=== PATIENT | male | born 1960 | race Caucasian/White ===

== ENCOUNTER 2016-07-07 12:45 | Emergency (ER) | payer MEDICARE, OTHER ==
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
--- NOTE | ~2016-07-07 | CT2 ---
[facility] A Service of [facility] RADIOLOGY TEXT RESULTS PATIENT: YAMILET DUONG LOCATION: [facility] : 64 UNIT #: [id number] AGE: [address]: Albania Martin MD SEX: M ORDER DR: [id number] [place], [place] [address] [id number] E MR#: [id number] Acc #: [id number] NAME: YAMILET DUONG. : 1960 SEX: M STUDY DATE/TIME: 07/07/2016 12:47 UNIT: [facility] ROOM: STUDY DESCRIPTION: CT Abd and Pelv W Cont Attending Physician: Albania Martin M.D. Ordering Physician: Albania Martin M.D. MEDICAL IMAGING REPORT This report is preliminary unless electronic signature is present EXAM CT abdomen and pelvis with contrast INDICATIONS Lower anterior chest/upper abdominal pain. Symptoms are chronic. TECHNIQUE Contrast-enhanced CT of the abdomen and pelvis. 100 mL of Isovue-370. This CT exam was performed with one or more of the following radiation dose reduction techniques: automatic exposure control, adjustment of mA and/or kV according to patient size, and iterative reconstruction. COMPARISON 10/22/2015. FINDINGS Refer to the separately dictated CTA of the chest for thoracic findings. Elevated right hemidiaphragm. ABDOMEN WITH CONTRAST: Liver enlarged measuring 19.6 cm. Hepatic steatosis. The spleen, adrenal glands, pancreas unremarkable. Previous cholecystectomy. There is a small non-obstructing calculus in the right kidney. The bowel loops are non-dilated. Moderate colonic stool burden. Small fat-containing umbilical hernia. PELVIS WITH CONTRAST: No pelvic mass or fluid. No aggressive appearing bone lesion. IMPRESSION 1. No clearly acute findings. 2. Elevated right hemidiaphragm with hepatomegaly and steatosis are [facility] A Service of [facility] RADIOLOGY TEXT RESULTS PATIENT: YAMILET DUONG LOCATION: [facility] : 64 UNIT #: [id number] AGE: [address]: Albania Martin MD SEX: M ORDER DR: similar to the prior. There is a small non-obstructing calculus in the right kidney. 3. Moderate colonic stool burden. Dictated by... Joaquin Prescott M.D. THIS IS AN ELECTRONICALLY VERIFIED REPORT Joaquin Prescott M.D. at 07/11/2016 7:10 AM EED/rell TD: 07/07/2016 21:50 JOB #: [id number] MEDICAL IMAGING REPORT COPY
[~2016-07-07 12:45] MED LIST: ADVAIR 250-501 EACH IH; ALLERGY RELIEF10 M2 PO; ATIVAN PO; BACLOFEN PO; BACLOFEN10 MG PO; BACLOFEN20 MG PO; BIAXIN PO; CLARITIN10 M2 PO; CLARITIN10 M3 PO; CLARITIN10 MG PO; CRESTOR PO; CULTURELLE CHE1 EACH; DESYREL300 MG PO; FISH OIL 1,001000 M1 PO; LACTULOSE10 G/15 M1 PO; LACTULOSE10 G/15 M3 PO; LACTULOSE10 G/15 ML PO; LEXAPRO PO; LEXAPRO20 MG PO; LIPITOR PO; LORTAB 10/500 T1 TAB PO; MAGNESIUM250 M1 PO; METRONIDAZOLE PO; MIRALAX17 GM PO; NEURONTIN; NEURONTIN300 MG PO; NEXIUM PO; NORCO 10/3251 TAB PO; OXYGEN; PEPTO BISMOL PO; PERCOCET10 PO; PHENERGAN PO; PHENERGAN25 MG PO; PREVACID PO; PRILOSEC PO; PRILOSEC20 MG; PROBIOTIC1 EAC1 PO; PROTONIX PO; SENNA-S TABLE1 UDTAB; SINGULAIR PO; SYMBICORT INH; TETRACYCLINE PO; TRAZODONE HCL150 MG PO; TRAZODONE PO; VALPROIC ACID PO; VESICARE PO; ZANAFLEX PO; ZANAFLEX4 M1 PO; ZYRTEC10 M2 PO
[2016-07-07 13:59] LABS: BASOPHIL% 0.3 % (0-2.5); EOSINOPHIL# 0.2 X10e3 (0-0.7); EOSINOPHIL% 2.4 % (0.0-7.0); HEMATOCRIT 44.5 % (38.0-50.0); HEMOGLOBIN 14.7 gm/dL (13.0-16.0); LYMPHOCYTE# 2.3 X10e3 (1.0-3.5); LYMPHOCYTE% 34.7 % (17.0-45.0); MEAN CORPUSCULAR HEMOGLOBIN 31.4 PG (28-34); MEAN PLATELET VOLUME 7.2 FL (6.5-11.5); MONOCYTE# 0.6 X10e3 (0-1.0); MONOCYTE% 8.7 % (3.0-12.0); NEUTROPHIL# 3.6 X10e3 (1.5-7.1); NEUTROPHIL% 53.9 % (40-75); PLATELET COUNT 187 X10e3 (140-420); RED BLOOD COUNT 4.68 X10e (3.90-5.60); RED CELL DISTRIBUTION WIDTH 13.3 % (11.0-15.5); WHITE BLOOD COUNT 6.7 X10e3 (4.0-10.5)
[2016-07-07 14:06] LABS: DIFF IND NO
[2016-07-07 14:26] LABS: BLOOD UREA NITROGEN 13 mg/dL (9-23); BUN/CREATININE RATIO 16.25; CALCIUM SERUM 9.2 mg/dL (8.4-10.2); CARBON DIOXIDE 30 mmol/L (22-31); CHLORIDE 100 mmol/L (100-111); CREATININE SERUM 0.8 mg/dL (0.6-1.4); GLOM FILT RATE Estimated ABOVE60 mL/min (>60); GLUCOSE FASTING 93 mg/dL (70-110); MAGNESIUM 1.8 mg/dL (1.6-3.0); SODIUM 139 mmol/L (135-145)
== END 2016-07-07 15:45 | disposition home or self-care (01) ==
LOC: CED 12:45
PROVIDERS: Student in an Organized Health Care Education/Training Program
DX: K59.00 Constipation, unspecified (principal); G89.29 Other chronic pain; K21.9 Gastro-esophageal reflux disease without esophagitis; E78.5 Hyperlipidemia, unspecified; F17.200 Nicotine dependence, unspecified, uncomplicated; Z88.5 Allergy status to narcotic agent; Z88.1 Allergy status to other antibiotic agents; Z88.8 Allergy status to other drugs, medicaments and biological substances; Z90.49 Acquired absence of other specified parts of digestive tract; Z98.890 Other specified postprocedural states
CPT/HCPCS: 36415; 71275; 74177; 80048; 83735; 85025; 96361; 96374; 96375; 99284; J1170; J2060; J3010; Q9967

== ENCOUNTER → 2016-07-24 | Outpatient (CLI) | payer MEDICARE, OTHER ==
--- NOTE | ~2016-07-24 | CR63 ---
[facility] A Service of [facility] & [facility] RADIOLOGY TEXT RESULTS PATIENT: YAMILET DUONG LOCATION: [facility] : 64 UNIT #: [id number] AGE: [address]: Robert Umaña MD SEX: M ORDER DR: [id number] [facility] [address] [place], [place] [address] [id number] O MR#: [id number] Acc #: [id number] NAME: YAMILET DUONG. : 1960 SEX: M STUDY DATE/TIME: 07/24/2016 12:46 UNIT: [facility] ROOM: STUDY DESCRIPTION: CR Chest 2 View Attending Physician: Robert Umaña M.D. Ordering Physician: Robert Umaña M.D. MEDICAL IMAGING REPORT This report is preliminary unless electronic signature is present EXAM PA and lateral chest dated 07/24/2016 COMPARISON 09/28/2015 HISTORY Shortness of breath and cough for 1-2 weeks. PA and lateral views are obtained. FINDINGS Heart size is normal. There is some chronic scarring in the left base. Right hemidiaphragm is elevated, unchanged from prior study. No acute infiltrates are seen. CONCLUSION Stable chest. No change from prior radiograph. Dictated by... Joe Diaz M.D. THIS IS AN ELECTRONICALLY VERIFIED REPORT Joe Diaz M.D. at 07/26/2016 3:10 PM CHRISTINA/ember TD: 07/24/2016 18:18 JOB #: [id number] MEDICAL IMAGING REPORT Page 1 of 1 COPY
== END | disposition home or self-care (01) ==
LOC: CRAD 12:40
DX: R05 Cough (principal)
CPT/HCPCS: 71020

== ENCOUNTER → 2016-10-13 | Outpatient (CLI) | payer MEDICARE, OTHER ==
--- NOTE | ~2016-10-13 | CR7 ---
[facility] A Service of [facility] RADIOLOGY TEXT RESULTS PATIENT: YAMILET DOUNG LOCATION: [facility] : 64 UNIT #: [id number] AGE: [address]: TANG FARIA PA-C SEX: M ORDER DR: [id number] [facility] [address] [place], [place] [address] [id number] O MR#: [id number] Acc #: [id number] NAME: YAMILET DUONG. : 1960 SEX: M STUDY DATE/TIME: 10/13/2016 13:05 UNIT: [facility] ROOM: STUDY DESCRIPTION: CR Abdomen Single AP View Attending Physician: Tang Faria Pa-C Referring Physician: Tang Faria Pa-C Ordering Physician: Physician Non-Staff Primary Care Physician: Kerry Parker A.P.R.N. MEDICAL IMAGING REPORT This report is preliminary unless electronic signature is present EXAM KUB INDICATION Constipation. This has been present for 19 years but has gotten worse over the past three months. FINDINGS Comparison made to prior exam from May 23, 2016. Examination is significantly degraded by this patient's body habitus. Certainly does appear to be extensive fecal burden throughout the colon which would be in keeping with this patient's history of constipation. There is elevation of the right hemidiaphragm unchanged when compared to the May 2016 exam. Patient also has a spinal nerve stimulator as well as cholecystectomy clips within the right upper quadrant. No dilated loops of small bowel or air-fluid levels are seen to suggest small bowel obstruction. IMPRESSION Patient does have fairly extensive fecal burden seen throughout the colon in keeping with history of constipation. Similar findings were present in May 2016. No convincing evidence of mechanical small bowel obstruction is seen. Dictated by... Gini Card M.D. THIS IS AN ELECTRONICALLY VERIFIED REPORT Gini Card M.D. at 10/15/2016 10:48 AM AFF/mjs [facility] A Service of [facility] RADIOLOGY TEXT RESULTS PATIENT: YAMILET DUONG [id number] 64 UNIT #: [id number] AGE: [address]: TANG FARIA PA-C SEX: M ORDER DR: TD: 10/14/2016 11:55 JOB #: [id number] MEDICAL IMAGING REPORT Page 1 of 1 COPY
[2016-10-13 12:32] LABS: BASOPHIL# 0.1 X10e3 (0-0.3); BASOPHIL% 0.8 % (0-2.5); EOSINOPHIL# 0.2 X10e3 (0-0.7); EOSINOPHIL% 3.1 % (0.0-7.0); HEMOGLOBIN 15.9 gm/dL (13.0-16.0); LYMPHOCYTE# 2.6 X10e3 (1.0-3.5); LYMPHOCYTE% 35.5 % (17.0-45.0); MEAN PLATELET VOLUME 7.5 FL (6.5-11.5); MONOCYTE# 0.6 X10e3 (0-1.0); MONOCYTE% 8.5 % (3.0-12.0); NEUTROPHIL# 3.8 X10e3 (1.5-7.1); NEUTROPHIL% 52.1 % (40-75); PLATELET COUNT 204 X10e3 (140-420); RED BLOOD COUNT 4.95 X10e (3.90-5.60); RED CELL DISTRIBUTION WIDTH 13.2 % (11.0-15.5); WHITE BLOOD COUNT 7.3 X10e3 (4.0-10.5)
[2016-10-13 12:34] LABS: DIFF IND NO
[2016-10-13 13:13] LABS: ALBUMIN SERUM 4.2 g/dL (3.5-5.0); BILIRUBIN,TOTAL 0.6 mg/dL (0.2-2.0); BUN/CREATININE RATIO 21.42; CALCIUM SERUM 9.2 mg/dL (8.4-10.2); CREATININE SERUM 0.7 mg/dL (0.6-1.4); MAGNESIUM 1.8 mg/dL (1.6-3.0); POTASSIUM 3.7 mmol/L (3.5-5.1)
[2016-10-13 13:37] LABS: THYROID STIMULATING HORMONE 0.4 uIU/ml (0.34-5.60)
[2016-10-13 13:44] LABS: FREE THYROXIN (T4) 0.75 ng/dL (0.58-1.64)
[2016-10-18 15:04] LABS: ALPHA-TOCOPHEROL 14.4 mg/L (5.7-19.9); BETA-GAMMA TOCOPHEROL 1.7 mg/L (<=4.3)
== END | disposition home or self-care (01) ==
LOC: CLAB 11:40
PROVIDERS: Physician Assistant
DX: G90.4 Autonomic dysreflexia (principal); R10.13 Epigastric pain; K59.00 Constipation, unspecified
CPT/HCPCS: 36415; 74000; 80053; 82652; 83735; 84439; 84443; 84446; 84591; 85025

== ENCOUNTER → 2016-11-14 | Outpatient (CLI) | payer MEDICARE, OTHER ==
--- NOTE | ~2016-11-14 | CR7 ---
[facility] A Service of [facility] & [facility] RADIOLOGY TEXT RESULTS PATIENT: YAMILET DUONG LOCATION: [facility] : 64 UNIT #: [id number] AGE: [address]: TANG FARIA PA-C SEX: M ORDER DR: [id number] [address] [address] [id number] O MR#: [id number] Acc #: [id number] NAME: YAMILET DUONG : 1960 SEX: M STUDY DATE/TIME: 11/14/2016 11:07 UNIT: [facility] ROOM: STUDY DESCRIPTION: CR Abdomen Single AP View Attending Physician: Tang Faria Pa-C Referring Physician: Tang Faria Pa-C Ordering Physician: Staff Doctor Not On Primary Care Physician: Kerry Parker A.P.R.N. MEDICAL IMAGING REPORT This report is preliminary unless electronic signature is present. EXAM Abdomen, 3 views; 11/14/2016. HISTORY Epigastric abdominal pain and chronic constipation since 1997 worsening in the last 3 months. FINDINGS Three views of the abdomen demonstrate normal bowel gas pattern with no evidence of bowel obstruction or free air. There is a large amount of fecal matter in the colon. There are no abnormal abdominal calcifications. Surgical clips right upper quadrant suggest prior cholecystectomy. IMPRESSION Large amount of fecal matter in the colon. No evidence of bowel obstruction or free air. Dictated by... Laci Ramírez M.D. THIS IS AN ELECTRONICALLY VERIFIED REPORT Laci Ramírez M.D. at 11/15/2016 2:17 PM KELVIN/brittney TD: 11/14/2016 21:04 JOB #: [id number] MEDICAL IMAGING REPORT Page 1 of 1
== END | disposition home or self-care (01) ==
LOC: SRAD 10:54
DX: R10.13 Epigastric pain (principal); K59.00 Constipation, unspecified
CPT/HCPCS: 74000

== ENCOUNTER → 2016-11-14 | Outpatient (CLI) | payer MEDICARE, OTHER ==
--- NOTE | ~2016-11-14 | CR63 ---
[facility] A Service of [facility] & [facility] RADIOLOGY TEXT RESULTS PATIENT: YAMILET DUONG LOCATION: [facility] : 64 UNIT #: [id number] AGE: [address]: Robert Umaña MD SEX: M ORDER DR: [id number] [address] [address] [id number] O MR#: [id number] Acc #: [id number] NAME: YAMILET DUONG : 1960 SEX: M STUDY DATE/TIME: 11/14/2016 11:07 UNIT: [facility] ROOM: STUDY DESCRIPTION: CR Chest 2 View Attending Physician: Robert Umaña M.D. Referring Physician: Robert Umaña M.D. Ordering Physician: Robert Umaña M.D. Primary Care Physician: Kerry Parker A.P.R.N. MEDICAL IMAGING REPORT This report is preliminary unless electronic signature is present. EXAM Chest PA and lateral, 3 views, 11/14/2016 HISTORY Dyspnea, shortness of breath and epigastric abdominal pain since 1997 worsening in the last 3 months. FINDINGS The heart is normal in size. There is elevation of the right hemidiaphragm, with infiltrate or atelectasis in the right lower lobe and there is discoid atelectasis at the left base. Lungs are otherwise clear. There are no pleural effusions. IMPRESSION Poor inspiratory result and elevation of the right hemidiaphragm with infiltrate or atelectasis in the right lower lobe. Dictated by... Laci Ramírez M.D. THIS IS AN ELECTRONICALLY VERIFIED REPORT Laci Ramírez M.D. at 11/15/2016 2:17 PM KELVIN/reed TD: 11/14/2016 20:56 JOB #: [id number] MEDICAL IMAGING REPORT Page 1 of 1
== END | disposition home or self-care (01) ==
LOC: SRAD 10:49
DX: R06.00 Dyspnea, unspecified (principal); J98.6 Disorders of diaphragm
CPT/HCPCS: 71020